=== PATIENT | male | born 1940 | race Hispanic/Latino ===

== ENCOUNTER → 2018-06-27 | Outpatient (CLI) | payer OTHER ==
[2018-06-27 11:19] LABS: CREATININE 1.4 mg/dL (0.5-1.5)
== END | disposition home or self-care (01) ==
LOC: LAB 10:43
PROVIDERS: ATTEND Internal Medicine Gastroenterology
DX: C18.4 Malignant neoplasm of transverse colon (principal)
CPT/HCPCS: 36415; 82565; 84520

== ENCOUNTER → 2018-06-28 | Outpatient (CLI) | payer OTHER ==
[~2018-06-28] MED LIST: IOHEXOL 350 MG/ML 100ML INFUS..BTL IV ONE
== END | disposition home or self-care (01) ==
LOC: RAH 11:11
PROVIDERS: ATTEND Internal Medicine Gastroenterology
DX: C18.4 Malignant neoplasm of transverse colon (principal)
CPT/HCPCS: 74178; Q9967

== ENCOUNTER → 2022-04-17 | Outpatient (CLI) | payer OTHER, MEDICARE | END | disposition home or self-care (01) | LOC: RAH 08:38 | PROVIDERS: ATTEND Internal Medicine | DX: R42 Dizziness and giddiness (principal); I65.23 Occlusion and stenosis of bilateral carotid arteries | CPT/HCPCS: 93880 ==

== ENCOUNTER → 2022-11-13 | Outpatient (CLI) | payer OTHER, MEDICARE ==
[~2022-11-13] MED LIST changes: -IOHEXOL 350 MG/ML 100ML INFUS..BTL IV ONE; +REGADENOSON 0.4 MG/5 ML PF SYG IVP ONE
== END | disposition home or self-care (01) ==
LOC: SHCH 07:56
PROVIDERS: ATTEND Internal Medicine Cardiovascular Disease
DX: R94.39 Abnormal result of other cardiovascular function study (principal); I47.20 Ventricular tachycardia, unspecified; I25.9 Chronic ischemic heart disease, unspecified
CPT/HCPCS: 78452; 96374; 93017; J2785; A9500 ×2

== ENCOUNTER → 2023-04-30 | Outpatient (CLI) | payer OTHER, MEDICARE ==
[2023-04-30 09:54] LABS: ALBUMIN 3.9 g/dL (3.5-5.0); BILIRUBIN,TOTAL 0.7 mg/dL (0.2-1.0); CREATININE 1.8 mg/dL (0.5-1.5); PHOSPHORUS 3.3 mg/dL (2.5-4.9); POTASSIUM 4.8 mmol/L (3.5-5.1)
[2023-04-30 09:58] LABS: HEMOGLOBIN A1C 9.7 % (4.0-6.0)
== END | disposition home or self-care (01) ==
LOC: LAB 09:01
PROVIDERS: ATTEND Internal Medicine Nephrology
DX: E11.22 Type 2 diabetes mellitus with diabetic chronic kidney disease (principal); N18.32 Chronic kidney disease, stage 3b; E11.21 Type 2 diabetes mellitus with diabetic nephropathy
CPT/HCPCS: 36415; 80053; 83036; 84100

== ENCOUNTER 2024-08-23 10:35 | Emergency (ER) | payer OTHER, MEDICAID ==
[~2024-08-23] VITALS: Ht 172.7 cm; Wt 95.3 kg
[2024-08-23 11:11] LABS: BASOPHILS # (AUTO) 0.04 K/uL (0.00-0.20); BASOPHILS % (AUTO) 0.2 % (0.0-5.0); EOSINOPHILS # (AUTO) 0.03 K/uL (0.00-0.70); EOSINOPHILS % (AUTO) 0.2 % (0.0-8.0); HEMATOCRIT 37.9 % (42-54); IMMATURE GRANULOCYTE ABSOLUTE 0.15 K/uL (0-1); LYMPHOCYTES # (AUTO) 0.5 K/uL (1.0-4.8); LYMPHOCYTES % (AUTO) 2.5 % (21.0-51.0); MEAN CORPUSCULAR HEMOGLOBIN 32.6 pg (27.0-33.0); MEAN CORPUSCULAR HGB CONC 36.7 g/dL (32.0-36.0); MONOCYTES % (AUTO) 5.4 % (3.0-13.0); NEUTROPHILS # (AUTO) 16.8 K/uL (1.8-7.7); NEUTROPHILS % (AUTO) 90.9 % (40.0-77.0); PLATELET COUNT (AUTO) 188 K/uL (130-400); RED BLOOD CELL COUNT(AUTO) 4.26 MIL/uL (4.50-6.20); RED CELL DISTRIBUTION WIDTH 12.7 % (11.0-15.5); WHITE BLOOD COUNT (AUTO) 18.5 K/uL (4.8-10.8)
[2024-08-23 11:17] LABS: CREATININE 2.1 mg/dL (0.5-1.3)
[2024-08-23 11:21] LABS: SARS-CoV-2, RNA, NAAT NEGATIVE SARS CoV-2 (NEGATIVE)
[2024-08-23 11:22] LABS: MAGNESIUM 2.2 mg/dL (1.80-2.40)
[2024-08-23 11:24] LABS: B-TYPE NATRIURETIC PEPTIDE 160 pg/mL (0-100)
[2024-08-23 11:27] LABS: INFLUENZA TYPE A Negative For Type A (NEGATIVE); INFLUENZA TYPE B Negative For Type B (NEGATIVE)
--- NOTE | 2024-08-23 11:55 | EKG ---
[facility] Test Date: 2024-08-23 Test Time: 10:53:52 Pat Name: KESHAWN GALLEGOS Department: ED Room: Gender: M Humanities Division Chair: [id number] : 1940 Requested By: ИРИНА GE Order Number: [id number] Reading MD: Ozzie Tesfaye Measurements Intervals Cylinder Rate: 105 P: 27 CT: 191 QRS: -59 QRSD: 100 T: 9 QT: 343 QTc: 454 Interpretive Statements Sinus tachycardia Inferior infarct, old Consider anterior infarct No previous ECG available for comparison Electronically Signed On 08-28-2024 22:01:58 CDT by Ozzie Tesfaye Please click the below link to view image of tracing.
--- NOTE | 2024-08-23 13:01 | ERN ---
General Chief Complaint: Weakness Stated Complaint: LOW BP,HYPERGLYCEMIA Time Seen by MD: 10:39 Time Seen by Midlevel: 10:39 Source: patient, family (son) History of Present Illness Initial Comments The patient is an 83-year-old male with a past medical history of type 2 diabetes, hypertension, and chronic kidney disease being brought in by EMS for evaluation of hyperglycemia and generalized body weakness that started this morning. According to the son who is at bedside the initial call was for hypertension and hyperglycemia however the son found the patient soiled on himself. This is unusual for him. Normally the patient is able to answer questions and ambulate. On arrival with the patient is specifically denies having any symptoms. Blood glucose per EMS was 182. Allergies: Coded Allergies: No Known Drug Allergies (Unverified Allergy, Unknown, 08/23/24) Past Medical History Past Medical History: Diabetes-Type II, Hypertension, Renal Disese, Renal Failure Past Surgical History: Other Surgical History Other: PENILE TUMOR REMOVAL ROS Dictation CONSTITUTIONAL: Negative except for HPI HEAD/FACE: Negative except for HPI EENT: Negative except for HPI RESPIRATORY: Negative except for HPI GASTROINTESTINAL/ABDOMINAL: Negative except for HPI GENITOURINARY: Negative except for HPI MUSCULOSKELETAL: Negative except for HPI INTEGUMENTARY: Negative except for HPI NEUROLOGICAL/PSYCH: Negative except for HPI HEMATOLOGIC/LYMPHATIC: Negative except for HPI All Systems Negative, Except as noted above. 13 point review of systems assessed and all negative except for above. Physical Exam Physical Exam Dictation Vital Signs reviewed General Appearance: Alert, oriented x 3, no acute distress, appears weak Head and Face: non-traumatic. Eyes: PERRL, pink conjunctivas, eyelid no trauma, anterior chamber with arcus senilis. Ears: Pinnas intact and no signs of trauma or erythema ear canals clear and no discharge TM no erythema Nose: No discharge, no bleeding. Oropharynx: Mouth normal, tongue pink, pharynx clear,no erythema, tonsils no exudates, no abscesses noted, mucous membrane moist Neck: Supple, non-tender, no thyromegaly, no masses, no JVD, no bruits Breast:Deferred Chest:No tenderness, no crepitus, no paradoxical movement, no retractions Lungs:Clear, well-ventilated, symmetric, no rales, no wheezing, no rhonchi, no stridor, good breath sounds bilaterally Heart: Regular rate, regular rhythm, no murmur, no gallops Vascular: no peripheral edema, Abdomen: Soft, positive bowel sounds, nondistended, no guarding, nontender, no rebound, no masses no hepatomegaly, no splenomegaly, no Gonzalez's sign, no hernias. Rectal: Deferred Genital: Deferred Neurological: Normal speech, motor function intact, sensory function intact Musculoskeletal: Neck nontender, full range of motion, back nontender, full range of motion, Extremities: nontender, full range of motion Skin: Color pink, dry, no turgor, no rash, no lacerations, no abrasions, no contusions. Lymphatic: Deferred Results Laboratory and Microbiology Lab and Micro Result Laboratory Tests Test 08/23/24 10:44 08/23/24 10:53 08/23/24 12:30 08/23/24 12:47 Influenza Type A Antigen Negative For Type A Influenza Type B Antigen Negative For Type B SARS-CoV-2, RNA, NAAT NEGATIVE SARS CoV-2 White Blood Count 18.5 K/uL (4.8-10.8) H Red Blood Count 4.26 MIL/uL (4.50-6.20) L Hemoglobin 13.9 g/dL (14.0-18.0) L Hematocrit 37.9 % (42-54) L Mean Corpuscular Volume 89.0 fL (79-99) Mean Corpuscular Hemoglobin 32.6 pg (27.0-33.0) Mean Corpuscular Hemoglobin Concent 36.7 g/dL (32.0-36.0) H Red Cell Distribution Width 12.7 % (11.0-15.5) Platelet Count 188 K/uL (130-400) Mean Platelet Volume 9.6 fL (7.5-10.5) Immature Granulocyte % (Auto) 0.8 % (0-1) Neutrophils (%) (Auto) 90.9 % (40.0-77.0) H Lymphocytes (%) (Auto) 2.5 % (21.0-51.0) L Monocytes (%) (Auto) 5.4 % (3.0-13.0) Eosinophils (%) (Auto) 0.2 % (0.0-8.0) Basophils (%) (Auto) 0.2 % (0.0-5.0) Neutrophils # (Auto) 16.8 K/uL (1.8-7.7) H Lymphocytes # (Auto) 0.5 K/uL (1.0-4.8) L Monocytes # (Auto) 1.0 K/uL (0.1-1.0) Eosinophils # (Auto) 0.03 K/uL (0.00-0.70) Basophils # (Auto) 0.04 K/uL (0.00-0.20) Absolute Immature Granulocyte (auto 0.15 K/uL (0-1) Nucleated Red Blood Cells 0.0 % (0.0-0.19) White Cell Morphology Comment See comments Red Blood Cell Morphology See comments Sodium Level 142 mmol/L (136-145) Potassium Level 4.0 mmol/L (3.5-5.1) Chloride Level 104 mmol/L (101-111) Carbon Dioxide Level 23 mmol/L (21-32) Blood Urea Nitrogen 28 mg/dL (7-18) H Creatinine 2.1 mg/dL (0.5-1.3) H Glomerular Filtration Rate Calc 30 mL/min (>90) Random Glucose 154 mg/dL (70-105) H Total Calcium 9.0 mg/dL (8.5-10.1) Magnesium Level 2.20 mg/dL (1.80-2.40) Total Creatine Kinase 41 U/L (21-232) Troponin I High Sensitivity 33 ng/L (4-75) B-Type Natriuretic Peptide 160 pg/mL (0-100) H Urine Color LIGHT-YELLOW (YELLOW) Urine Appearance CLEAR (CLEAR) Urine pH 5.5 (5.0-8.0) Urine Specific [place] 1.014 (1.001-1.031) Urine Protein NEGATIVE mg/dL (NEGATIVE) Urine Glucose (UA) >=1000 mg/dL (NEGATIVE) H Urine Ketones NEGATIVE mg/dL (NEGATIVE) Urine Occult Blood NEGATIVE (NEGATIVE) Urine Nitrate NEGATIVE (NEGATIVE) Urine Bilirubin NEGATIVE mg/dL (NEGATIVE) Urine Urobilinogen 0.2 mg/dL (0.2-1.0) Urine Leukocyte Esterase NEGATIVE [place]/uL Urine RBC 0-1 /HPF (0-1) Urine WBC 0-1 /HPF (0-1) Urine Bacteria None /HPF (None Seen) Lactic Acid Level 1.8 mmol/L (0.8-2.5) Labs Reviewed?: Yes MDM MDM: 83-year-old male with an extensive past medical history that includes type 2 diabetes, hypertension, and hyperlipidemia presenting to the ER via EMS for generalized body weakness. On physical examination the patient appears weak. Initial vital signs are remarkable for a low-grade temperature of 100.0. According to son who is at bedside the patient appears more weak than usual and today he soiled himself which is unusual for him. On physical examination the patient is able to move all four extremities. He is answering questions appropriately. He is not tachycardic. CBC shows leukocytosis with a left shift. His hemoglobin is stable at 13.9. No thrombocytopenia noted. Chemistries reveal an elevated BUN at 28 and an elevated creatinine at 2.1. This appears to be chronic. Last creatinine was 1.8 and 2023. BNP slightly elevated at 160. Random glucose is stable at 154. Lactic acid is normal. Urinalysis does not show any evidence of infection. Chest x-ray shows increased interstitial markings but no obvious signs of focal pneumonia. Broad-spectrum antibiotics were started and blood cultures were obtained. The patient will be admitted for further evaluation of generalized body weakness, failure to thrive a leukocytosis. Case was discussed with the admitting team who agrees to admit Differential diagnosis: Urinary tract infection, pneumonia, failure to thrive, dehydration, electrolyte abnormality Rationale: Tests considered and ordered secondary to shared decision making include: Previous outside records reviewed: Old ER visits. Risk of complication and/or morbidity or mortality of patient management: None Medications-Per medication reconciliation Need for hospitalization: Patient does meet criteria for hospitalization. Need for emergency major/minor surgery: No There are no social concerns with this patient. Prescription drug management Prescriptions will include symptomatic care Patient's prior external medical records from other ER visits were reviewed by me as indicated. Prior testing and results from previous visits were reviewed. Prior tests were taken into account with medical decision making and resource utilization, independent historian/historians were used to obtain complete medical history. I independently interpreted the test that were performed, results were reviewed by me and considered findings on radiology if ordered. Medical management and examination interpretation discussions were had by me with other qualified healthcare professionals as indicated for the patient's care. ED Course Orders Procedure Category Date Status Time Cbc With Differential LAB 08/23/24 Complete 10:40 Basic Metabolic Panel LAB 08/23/24 Complete 10:40 B-Type Natriuretic LAB 08/23/24 Complete Peptide 10:40 Creatine Kinase, Total LAB 08/23/24 Complete 10:40 Magnesium LAB 08/23/24 Complete 10:40 Covid Rna Naat LAB 08/23/24 Complete 10:40 Influenza Type A & B, LAB 08/23/24 Complete Rapid 10:40 Troponin I High LAB 08/23/24 Complete Sensitivity 10:40 Urinalysis Profile LAB 08/23/24 Complete 10:40 Chest 1vw RAD 08/23/24 Resulted 10:40 12 Lead Ekg Tracing- EKG 08/23/24 Complete Technical 10:51 0.9% Nacl 500ml PHA 08/23/24 Complete Iv.Soln (Ns 500ml 12:00 Ceftriaxone 1g Vial PHA 08/23/24 Complete (Rocephine 1g Inj) 12:00 Blood Cult PARISH 08/23/24 In Process 12:23 Lactic Acid LAB 08/23/24 Complete 12:23 Ct Head/Brain W/O CT 08/23/24 Logged Contrast 14:00 Current Medications Medications (Trade) Dose Ordered Sig/Obdulio Route PRN Reason Start Time Stop Time Status Last Admin Dose Admin Ceftriaxone Sodium (ROCEphine 1G INJ) 1 gm ONCE ONCE IVPB 08/23/24 12:00 08/23/24 12:56 DC 08/23/24 13:04 Sodium Chloride 500 ml @ 0 mls/hr ONCE ONCE IV 08/23/24 12:00 08/23/24 12:57 DC 08/23/24 13:06 Vital Signs Date Time Temp Pulse Resp B/P (MAP) Pulse Ox O2 Delivery O2 Flow Rate FiO2 08/23/24 13:07 99.7 91 19 113/58 98 Room Air* 0 21 08/23/24 11:24 100.0 100 18 101/63 98 Room Air* 0 21 DX & DISP Disposition: Inpatient Decision to Admit Date: August 23, 2024 Departure Impression: Primary Impression: Dehydration Additional Impressions: Failure to thrive, Acute on chronic renal failure, Leukocytosis Condition: Stable Referrals: SELF,REFERRAL (PCP) Time of Disposition: 13:07 I have reviewed the case, and I agree with, Diagnosis and Plan I performed the substantive portion of the visit. I have reviewed and personally made and approve the management plan that is documented in the note by myself or the EVITA. I acknowledge for responsibility for the patient's management plan. ИРИНА GE August 23, 2024 13:01 DAVID GOLD DO August 23, 2024 14:32
[2024-08-23 13:02] LABS: ADD UA MICROSCOPIC YES
[2024-08-23 13:03] LABS: APPEARANCE,URINE CLEAR (CLEAR); BILIRUBIN,URINE NEGATIVE (NEGATIVE); COLOR,URINE LIGHT-YELLOW (YELLOW); GLUCOSE, URINE (UA) >=1000 mg/dL (NEGATIVE); KETONES,URINE NEGATIVE (NEGATIVE); LEUKOCYTE ESTERASE ,URINE NEGATIVE Leu/uL (NEGATIVE); NITRATE,URINE NEGATIVE (NEGATIVE); OCCULT BLOOD,URINE NEGATIVE (NEGATIVE); PH,URINE 5.5 (5.0-8.0); PROTEIN,URINE NEGATIVE (NEGATIVE); RBC,URINE 0-1 /HPF (0-1); UROBILINOGEN,URINE 0.2 mg/dL (0.2-1.0); WBC,URINE 0-1 /HPF (0-1)
[2024-08-23] MEDS: cefTRIAXone 1G VIAL IVPB ONE (13:04)
[2024-08-23] MEDS: 0.9% NACL 500ML IV.SOLN 500 ML IV ONE (13:06)
--- NOTE | 2024-08-23 13:32 | HMCIMG ---
CHEST 1VW HISTORY: Pneumonia COMPARISON: None FINDINGS: A frontal projection of the chest was obtained. No acute pulmonary infiltrates is seen. The heart is borderline enlarged. Degenerative changes are seen. Prominent interstitial markings are seen. No evidence of aortic calcification is seen. IMPRESSION: 1. No acute pulmonary infiltrate is seen.
--- NOTE | 2024-08-23 14:03 | NUR ---
TRANSFER: CALL PLACED TO [facility]; SPOKE WITH BENITO, TRANSFER INITIATED FOR DX: TIA, NEEDING NEUROLOGY SERVICES.
--- NOTE | 2024-08-23 14:24 | NUR ---
TRANSFER: RECEIVED CALL FROM [facility]ENITO FROM [facility] DIVERSION. PATIENT AND FAMILY WERE INFORMED AND ASKED IF THEY WOULD LIKE TO PROCEED WITH TRANSFER TO [facility] AND BOTH PATIENT AND FAMILY DID NOT AGREE TO GO TO [facility].
--- NOTE | 2024-08-23 15:19 | NUR ---
TRANSFER: TRANSFER INITIATED TO [facility], DX: TIA, NEUROLOGY SERVICES.
--- NOTE | 2024-08-23 15:59 | NUR ---
TRANSFER: PATIENT ACCEPTED TO [facility]; DR. LEA JAY; ROOM #[id number].
--- NOTE | 2024-08-23 16:41 | NUR ---
TRANSPORT: CALL PLACED TO [facility] FOR PATIENT TRANSPORT TO [facility], ROOM #[id number].
--- NOTE | 2024-08-23 16:58 | HMCIMG ---
CT HEAD/BRAIN W/O CONTRAST HISTORY: Intracranial bleed COMPARISON: None TECHNIQUE: Multiple sequential axial images of the head were obtained from the base of the skull through vertex. Patient was not given contrast through intravenous route. FINDINGS: The ventricles and extraventricular CSF spaces are dilated consistent with cerebral atrophy. Nonspecific white matter changes seen. There is atherosclerosis. There is no midline shift, mass effect or herniation. No acute intracranial bleed is seen. Visualized portion of the paranasal sinuses are grossly within normal limits. IMPRESSION: 1. No acute intracranial bleed is seen. 2. Atrophy with white matter changes. CT was performed with one or more following dose reduction techniques: automated exposure control, adjustment of the mA and kv according to patient's size, or use of a iterative reconstruction technique.
--- NOTE | 2024-08-23 17:36 | NUR ---
CALLED REPORT TO SEBAS SHANNON RN FROM [facility], PATIENT WAS TAKEN BY EMS RIGHT NOW, NO COMPLICATIONS Addendum: 08/23/24 at 1738 by LALO PATIENT LEFT WITH IV ON RIGHT HAND
[2024-08-23 17:37] VITALS: BP 132/70; PULSE 76; RESP 17; TEMP 99.6; O2SAT 100
== END 2024-08-23 17:45 | disposition short-term general hospital (02) ==
LOC: EDH 10:35
DX: I12.9 Hypertensive chronic kidney disease with stage 1 through stage 4 chronic kidney disease, or unspecified chronic kidney disease (principal); E11.22 Type 2 diabetes mellitus with diabetic chronic kidney disease; N18.9 Chronic kidney disease, unspecified; E11.65 Type 2 diabetes mellitus with hyperglycemia; R62.7 Adult failure to thrive; E86.0 Dehydration; D72.829 Elevated white blood cell count, unspecified; Z20.822 Contact with and (suspected) exposure to COVID-19
CPT/HCPCS: 99285; 96365; 70450; 71045; 87635; 82550; 83735; 84484; 80048; 83880; 85025; 87040 ×2; 87804 ×2; 83605; 81001; 36415; 93005; J7040; J0696